=== PATIENT | female | born 1965 | race American Indian/Alaskan Native ===

== ENCOUNTER 2016-10-04 13:04 | Emergency (ER) | payer OTHER ==
[~2016-10-04] VITALS: Ht 154.9 cm; Wt 59.1 kg
[2016-10-04] MEDS ORDERED: FEXOFENADINE HY60 MG PO (13:14)
[2016-10-04] MEDS ORDERED: DOXYCYCLINE HY100 M5 PO (14:27)
[2016-10-04] MEDS ORDERED: FLAGYL500 M1 PO (14:52)
[2016-10-04 15:38] VITALS: BP 124/88
== END 2016-10-04 14:51 | disposition home or self-care (01) ==
LOC: ED 13:04
DX: N73.0 Acute parametritis and pelvic cellulitis (principal); A59.09 Other urogenital trichomoniasis; N93.8 Other specified abnormal uterine and vaginal bleeding
CPT/HCPCS: J0696; Q0111

== ENCOUNTER 2021-10-23 14:30 | Emergency (ER) | payer OTHER ==
[~2021-10-23] VITALS: Ht 154.9 cm; Wt 67.7 kg
[~2021-10-23 14:30] MED LIST: AMBIEN10 MG PO; CELEXA40 MG PO; DOXYCYCLINE HY100 M5 PO; FEXOFENADINE HY60 MG PO; FLAGYL500 M1 PO; KLONOPIN 0.5MG0.5 MG PO; TOPAKAX
[2021-10-23] MEDS ORDERED: LEVOTHYROXINE75 MCG PO (15:04)
[2021-10-23 15:14] VITALS: BP 152/88
[2021-10-23 15:22] LABS: BASO # 0.05 K/mm3 (0.02-0.10); EOS # 0.44 K/mm3 (0.04-0.40); EOS % 4.1 % (1.0-5.0); HEMOGLOBIN 16.3 g/dL (12.5-16.0); LYMPH# 2.79 K/mm3 (1.50-4.00); MEAN CELL VOLUME 90 fl (78-100); MEAN CORPUSCULAR HEMOGLOBIN 30 pg (27-31); MEAN CORPUSCULAR HGB CONC 33 g/dL (33-37); MEAN PLATELET VOLUME 11.4 fl (7.4-10.4); MONO # 0.83 K/mm3 (0.20-0.80); NEU # 6.49 K/mm3 (1.40-6.50); PLATELET COUNT 304 K/mm3 (130-400); RED BLOOD COUNT 5.47 M/mm3 (4.10-5.30); RED CELL DISTRIBUTION WIDTH 12.9 % (11.5-14.5); WHITE BLOOD COUNT 10.6 K/mm3 (4.8-10.8)
[2021-10-23 15:32] LABS: ALBUMIN 4.7 g/dL (3.5-5.0); SODIUM 139 mmol/L (136-145)
[2021-10-23 15:33] LABS: CALCIUM 10.7 mg/dL (8.3-10.5)
[2021-10-23 15:34] LABS: GLUCOSE 100 mg/dL (65-105)
[2021-10-23 15:35] LABS: CARBON DIOXIDE 21 mmol/L (22-29)
[2021-10-23 15:36] LABS: TOTAL BILIRUBIN 0.3 mg/dL (0.2-1.2)
[2021-10-23 15:39] LABS: AST-SGOT 21 U/L (5-34)
[2021-10-23 15:41] LABS: ALT/SGPT 20 U/L (0-55)
[2021-10-23 15:57] LABS: URINE WBC 0 /hpf (0-3)
[2021-10-23 15:58] LABS: ALCOHOL IN-HOUSE < 10 mg/dL (<10)
[2021-10-23 16:34] LABS: URINE APPEARANCE CLEAR; URINE BILIRUBIN NEGATIVE (NEGATIVE); URINE BLOOD TRACE (NEGATIVE); URINE COLOR YELLOW; URINE GLUCOSE NEGATIVE (NEGATIVE); URINE KETONE NEGATIVE (NEGATIVE); URINE LEUKOCYTE ESTERASE NEGATIVE (NEGATIVE); URINE MUCUS PRESENT (NOT PRESENT); URINE NITRATE NEGATIVE (NEGATIVE); URINE PROTEIN(semi-quant) NEGATIVE (NEGATIVE); URINE UROBILINOGEN NORMAL (NORMAL)
== END 2021-10-23 18:25 | disposition home or self-care (01) ==
LOC: ED 14:30
PROVIDERS: Nurse Practitioner
DX: R10.31 Right lower quadrant pain (principal); Z91.040 Latex allergy status; Z28.310 Unvaccinated for COVID-19
CPT/HCPCS: J1885; J7030; Q9967

== ENCOUNTER → 2024-04-03 | Outpatient (CLI) | payer OTHER ==
[~2024-04-03] MED LIST changes: +AMLODIPINE BESYL5 MG PO; +Gadoterate 20 ML VIAL IV ONE; +LEVOTHYROXINE75 MCG PO
== END ==
LOC: RAD 10:49
DX: M47.816 Spondylosis without myelopathy or radiculopathy, lumbar region (principal); M47.817 Spondylosis without myelopathy or radiculopathy, lumbosacral region; M43.16 Spondylolisthesis, lumbar region; M41.86 Other forms of scoliosis, lumbar region
CPT/HCPCS: A9575